=== PATIENT | male | born 1970 | race Caucasian/White ===

== ENCOUNTER 2021-03-11 23:46 | Emergency (ER) | payer OTHER ==
[~2021-03-11 23:46] MED LIST: ALLOPURINOL100 MG PO; HYDROCHLOROTH12.5 M1 PO; LISINOPRIL20 MG PO; TESSALON PERLE100 MG PO; VENTOLIN HFA 66.7 GM INH; ZITHROMAX250 MG PO
== END 2021-03-12 01:16 | disposition home or self-care (01) ==
LOC: ER1 23:46
DX: M79.604 Pain in right leg (principal); M79.605 Pain in left leg; I10 Essential (primary) hypertension
CPT/HCPCS: 85379; 99283

== ENCOUNTER → 2022-06-10 | Outpatient (CLI) | payer SELFPAY | LOC: KOH-I 09:15 | DX: K76.0 Fatty (change of) liver, not elsewhere classified (principal); K80.20 Calculus of gallbladder without cholecystitis without obstruction | CPT/HCPCS: 76705 ==